=== PATIENT | female | born 1955 | race African-American/Black ===

== ENCOUNTER 2017-06-27 11:53 | Emergency (ER) | payer OTHER ==
[2017-06-27 11:59] VITALS: BP 129/90; PULSE 97; TEMP 98.5; BMI 23.3
--- NOTE | 2017-06-27 12:19 | PDOC ---
History of Present Illness - General Chief Complaint: Laceration Stated Complaint: LT FINGER LACERATION Time Seen by Provider: 06/27/17 12:03 History Source: Patient - History of Present Illness Initial Comments: 06/27/17 12:18 Best Contact: PCP:[phone] Pmhx: HTN, HDL, Pshx: 1988: Partial hysterectomy Allergies:NKDA FH:Mother/ in her 80s/hypertension, father in his 60s/hypertension Social Hx: Ciarettes/ 0 Alcohol/ 0 Drugs/0 LMP:n/a 06/27/17 12:32 62-year-old female who is right hand dominant presents to the ER complaining of a laceration to the left second digit. Patient states while pruning, she accidentally cut her left index finger. Bleeding controlled with direct pressure prior to her arrival. Patient denies extremity numbness or tingling sensation. Unknown last tetanus. Patient denies any other complaints. Past History - Past Medical History Allergies/Adverse Reactions: Allergies Allergy/AdvReac Type Severity Reaction Status Date / Time No Known Allergies Allergy Verified 06/27/17 11:59 Home Medications: Ambulatory Orders NK [No Known Home Medication] 06/27/17 - Suicide/Smoking/Psychosocial Hx Smoking History: Never smoked Hx Alcohol Use: No Drug/Substance Use Hx: No Review of Systems - Review of Systems Able to Perform ROS?: Yes Comments:: 06/27/17 12:19 CONSTITUTIONAL: Absent: fever, chills, diaphoresis, generalized weakness, malaise, loss of appetite MUSCULOSKELETAL: Absent: myalgia, arthralgia, joint swelling SKIN: Absent: rash, itching, pallor HEMATOLOGIC/IMMUNOLOGIC: Absent: easy bleeding, easy bruising, lymphadenopathy, frequent infections Left second digit 2 cm transverse laceration to the volar mid section of the middle phalanx Bleeding controlled with direct pressure prior to her arrival Negative numbness and tingling sensation/pain Is the patient limited Croatian proficient: No *Physical Exam - Vital Signs Last Vital Signs Temp Pulse Resp BP Pulse Ox 98.5 F 97 H 20 129/90 100 06/27/17 11:57 06/27/17 11:57 06/27/17 11:57 06/27/17 11:57 06/27/17 11:57 - Physical Exam Comments: 06/27/17 12:19 GENERAL: Well developed, well nourished. Awake and alert. No acute distress. MUSCULOSKELETAL Normal range of motion at all joints. No bony deformities or tenderness. No CVA tenderness. EXTREMITIES: No cyanosis. No clubbing. No edema. No calf tenderness. SKIN: Warm and dry. Normal capillary refill. No rashes. No jaundice. Left second digit 2 cm transverse laceration to the volar mid section of the middle phalanx 2 point sensation intact Full range of motion Full range of motion against resistance on flexion and extension Capillary refill less than 2 seconds PROCEDURE NOTE Left second digit 2 cm transverse/laceration to the volar mid section of the middle phalanx Betadine prep 1% lidocaine 1.5 mL/digital block Wound explored Flexor tendon visualized on full flexion and extension/negative tendon laceration appreciated Negative foreign body appreciated Normal saline irrigation/copious (4) 5-0 nylon interrupted/skin Bacitracin Band-Aid *DC/Admit/Observation/Transfer Diagnosis at time of Disposition: Finger laceration Qualifiers: Encounter type: initial encounter Finger: little finger Damage to nail status: without damage Foreign body presence: without foreign body Laterality: left Qualified Code(s): S61.217A - Laceration without foreign body of left little finger without damage to nail, initial encounter - Discharge Dispostion Condition at time of disposition: Stable Decision to Admit order: No - Referrals Referrals: Aster Castillo [Primary Care Provider] - - Patient Instructions Printed Discharge Instructions: DI for Laceration Repair Additional Instructions: Keep the incision clean and dry for 24 hours. After 24 hours, you may allow the soap and water to rinse off your incision. Avoid direct pressure of the water to the incision. Pat the incision dry with a clean clothe. Apply a small amount of bacitracin onto the incision. Cover the incision loosely with a bandaid. Take tylenol/motrin as needed for pain. Follow up with your physician or the ER in 48 hours for a wound check. Return to the ER if you notice red streaks, increase redness/swelling/severe pain to the incision. Suture removal in 11 days. - Post Discharge Activity
[2017-06-27] MEDS ORDERED: TETANUS AND DIPHTHERIA TOXOID 0.5 ML DISP.SYRIN IM ONE (12:29)
[2017-06-27] MEDS ORDERED: DIPHTH,PERTUSS(ACELL),TET 0.5 ML DISP.SYRIN IM ONE (12:43)
== END 2017-06-27 12:52 | disposition home or self-care (01) ==
LOC: JERFT 11:53
PROC: 0HQGXZZ Repair Left Hand Skin, External Approach (ICD-10-PCS; principal; 2017-06-27)
PROC: 3E0234Z Introduction of Serum, Toxoid and Vaccine into Muscle, Percutaneous Approach (ICD-10-PCS; 2017-06-27)
DX: S61.211A Laceration without foreign body of left index finger without damage to nail, initial encounter (principal); W31.89XA Contact with other specified machinery, initial encounter; Y93.H2 Activity, gardening and landscaping; Y92.9 Unspecified place or not applicable; I10 Essential (primary) hypertension; E78.5 Hyperlipidemia, unspecified
CPT/HCPCS: 90715; 99281-25

== ENCOUNTER 2017-07-08 09:27 | Emergency (ER) | payer OTHER ==
[2017-07-08 09:34] VITALS: BP 136/83; PULSE 81; TEMP 99; BMI 24.1
--- NOTE | 2017-07-08 09:45 | PDOC ---
Suture Removal/Wound Check HPI - History of Present Illness Chief Complaint: Suture/Staple Removal(Here) Stated Complaint: SUTURE REMOVAL Time Seen by Provider: 07/08/17 09:33 History Source: Yes: Patient Exam Limitations: Yes: No Limitations [facility] Date of Last ED visit: 07/28/17 - Previous ED Treatment Type of procedure performed on last visit: Yes: Laceration Repair Tetanus Immunization: Yes: Up to Date Past History - Past Medical History Allergies/Adverse Reactions: Allergies Allergy/AdvReac Type Severity Reaction Status Date / Time No Known Allergies Allergy Verified 07/08/17 09:33 Home Medications: Ambulatory Orders NK [No Known Home Medication] 06/27/17 COPD: No - Suicide/Smoking/Psychosocial Hx Smoking History: Never smoked Hx Alcohol Use: No Drug/Substance Use Hx: No Suture Removal/Wound Check PE - Physical Exam Laceration/Wound Check Symptoms: reports: None Comments: 07/08/17 09:43 left index finger with 3 simple sutures intact Current Severity Level: None Location of Laceration/Wound: left: Finger (index finger left ) *Review of Systems - Review of Systems Able to Perform ROS?: Yes Constitutional: No: Symptoms Reported HEENTM: No: Symptoms Reported Integumentary: Yes: Symptoms Reported *Physical Exam - Vital Signs Last Vital Signs Temp Pulse Resp BP Pulse Ox 99 F 81 18 136/83 99 07/08/17 09:31 07/08/17 09:31 07/08/17 09:31 07/08/17 09:31 07/08/17 09:31 - Physical Exam General Appearance: Yes: Nourished, Appropriately Dressed HEENT: positive: EOMI, LUBA Extremity: positive: Normal Capillary Refill, Normal Inspection, Normal Range of Motion, Other (left index finger with 3 simple interrupted sutures CDI well healed ) Integumentary: positive: Normal Color, Dry, Warm Neurologic: positive: Fully Oriented, Alert, Normal Mood/Affect, Normal Response , Motor Strength 5/5 Medical Decision Making - Medical Decision Making 07/08/17 09:44 cc: well healed laceration to the left index finger CDI from 3 simple sutures removed *DC/Admit/Observation/Transfer Diagnosis at time of Disposition: Visit for suture removal - Discharge Dispostion Disposition: HOME Condition at time of disposition: Good - Referrals Referrals: sAter Castillo [Primary Care Provider] - - Patient Instructions Printed Discharge Instructions: DI for Suture Removal - Post Discharge Activity
== END 2017-07-08 09:52 | disposition home or self-care (01) ==
LOC: JERFT 09:27 → JER 09:27 → JERFT 09:52
DX: Z48.02 Encounter for removal of sutures (principal)
CPT/HCPCS: 99281-25

== ENCOUNTER 2018-11-27 06:08 | Day surgery (SDC) | payer OTHER ==
[2018-11-26 16:49] VITALS: BMI 23.3
[2018-11-27] MEDS ORDERED: PROPOFOL 20 ML ONE ×3 (07:26)
[2018-11-27] MEDS ORDERED: DEXAMETHASONE SOD PHOSPHATE 4 MG/1 ML VIAL ONE (07:26)
[2018-11-27] MEDS ORDERED: MIDAZOLAM HCL 2 MG/2 ML SINGLE DOSE VIAL ONE (07:27)
[2018-11-27] MEDS ORDERED: EPHEDRINE SULFATE/0.9% NACL/PF 50 MG/10 ML SYRINGE NR ONE (07:27)
[2018-11-27] MEDS ORDERED: SUCCINYLCHOLINE CHLORIDE 200 MG/10 ML SYRINGE ONE (07:27)
[2018-11-27] MEDS ORDERED: SODIUM CHLORIDE 0.9% P/F 10 ML VIAL IJ ONE (07:28)
[2018-11-27] MEDS ORDERED: ceFAZolin SODIUM 1 GM VIAL ONE (07:28)
[2018-11-27] MEDS ORDERED: BUPIVACAINE HCL/PF 0.5% (5 MG/ML) 30 ML VIAL IJ ONE ×2 (07:43→08:42)
[2018-11-27] MEDS ORDERED: oxyCODONE HCL 5 MG TABLET PO PRN (07:48)
[2018-11-27] MEDS ORDERED: ONDANSETRON 4 MG/2 ML VIAL IVPUSH PRN (07:48)
--- NOTE | 2018-11-27 07:54 | HP ---
Satellite [facility] - Chief Complaint Chief Complaint: right knee pain - Past Medical History Allergies/Adverse Reactions: Allergies Allergy/AdvReac Type Severity Reaction Status Date / Time No Known Allergies Allergy Verified 11/27/18 06:38 - Current Medications Current Medications: Home Medications Medication Instructions Recorded Atorvastatin Ca [Lipitor] 20 mg PO HS 11/26/18 Losartan/Hydrochlorothiazide 1 each PO DAILY 11/26/18 [Hyzaar 100-25 Tablet] Hydrocodone/Acetaminophen 1 each PO Q6H #20 tablet MDD 4 11/27/18 [Hydrocodone-Acetamin 5-325 mg] Satellite Physical Exam - Physical Examination Vital Signs: Vital Signs Period Temp Pulse Resp BP Sys/[place] Pulse Ox Last 24 Hr 98.2 F-98.2 F 86-86 20-20 126-126/78-78 99 General Appearance: Well Nourished, Well Developed, Alert & Oriented x3 ENT: Clear Lung: Normal air movement Heart: Regular rate & rhythm Extremities: Other (right knee- + swelling, + ttp, decr rom, + mcmurrays, nvi) Neurological: Intact, Alert, Oriented Satellite Impression/Plan - Impression/Plan Impression: right knee internal derangement Operative Procedure: right knee arthroscopy Date to be Performed: 11/27/18
[2018-11-27] MEDS ORDERED: LACTATED RINGERS SOLUTION 1,000 ML IV SCH (08:00)
[2018-11-27] MEDS ORDERED: ceFAZolin SODIUM 1 GM VIAL IVPB ONE (08:20)
--- NOTE | 2018-11-27 09:00 | OP ---
Operative Note - Note: Operative Date: 11/27/18 Pre-Operative Diagnosis: right knee pain, MM tear, OA Operation: right knee arthroscopy, partial medial meniscectomy, debridement chondroplasty Post-Operative Diagnosis: Same as Pre-op Surgeon: Chris Hayden [place] Hand: Jorgito Dubois Anesthesiologist/MINE ENGINEERING SUPERVISOR: Any Pina Anesthesia: General, Local Specimens Removed: shavings Estimated Blood Loss (mls): 0 Drains, Volume Out (mls): 0 Blood Volume Replaced (mls): 0 Fluid Volume Replaced (mls): 700 Operative Report Dictated: Yes
--- NOTE | 2018-11-27 10:04 | OP ---
DATE OF OPERATION: 11/27/2018 PREOPERATIVE DIAGNOSIS: Right knee pain, medial meniscus tear, and osteoarthritis. POSTOPERATIVE DIAGNOSIS: Right knee pain, medial meniscus tear, and osteoarthritis. OPERATION: Right knee arthroscopy, partial medial meniscectomy, and debridement chondroplasty. SURGEON: Chris Hayden M.D. BATCH MIXING TRUCK DRIVER: Jorgito Dubois M.D. ANESTHESIOLOGIST: Any Pina MD DRAINS: None. COMPLICATIONS: None. SPECIMENS: Arthroscopic shavings. BLOOD LOSS: None. BLOOD GIVEN: None. FLUID REPLACEMENT: 500 mL PlasmaLyte. INDICATIONS FOR PROCEDURE: Patient is a 63-year-old female with a preoperative diagnosis of right knee pain, medial meniscus tear and osteoarthritis. After understanding the potential risks, complications, alternatives and benefits of surgery versus nonsurgical treatment, the patient elected to undergo this procedure. She understands she may not get complete relief of her symptoms, and she may need continued treatment of her osteoarthritis. PROCEDURE: The patient was brought to the operating room, peripheral IV placed and IV sedation given. One gram of IV Ancef was given. LMA anesthesia was induced. Ample Webril was placed around the right thigh. A tourniquet was applied. The patient was placed into the C-clamp leg stevens with a Styrofoam ring and ample padding throughout. The right lower extremity was prepped and draped in sterile fashion, elevated, exsanguinated with an Esmarch bandage and tourniquet inflated to 250 mmHg. A superomedial outflow portal was established. A lateral portal was established, and diagnostic arthroscopy was performed. Immediately it was apparent the patient had a large radial tear of the posterior horn of the medial meniscus and degenerative fraying of the body of the medial meniscus. A medial portal was established under direct visualization using a spinal needle. Using a combination of the right biting forceps and the curved shaver, a partial medial meniscectomy was performed. Photographs were taken before and after. I then used the probe, and the flaps that were left were stable, but there was 1 portion of the radial component that went all the way to the periphery, therefore disrupting all the hoop fibers of the medial meniscus. There was an area of grade 4 osteoarthritis on the medial tibial plateau, approximately the size of a quarter. Gentle debridement chondroplasty was performed along its periphery. The medial femoral condyle had some mild arthritic changes but was not as bad. The intracondylar notch looked good. The ACL looked good. The lateral compartment looked good. There was mild fraying of the lateral meniscus as well. This was debrided. The lateral compartment had no significant osteoarthritis. Next, the patellofemoral compartment was directly visualized. 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 This area was debrided. After the debridement chondroplasty, the area was copiously irrigated and washed out. All debris and excess saline were removed. The arthroscopy equipment was removed. The knee was injected with 20 mL of 0.5% Marcaine, after the portals were closed with 3-0 nylon sutures. The area was then washed and dried, and covered with Xeroform gauze, 4 x 4 gauze, Webril and IRIS bandage. Total tourniquet time was 18 minutes. There were no complications during the case. The patient tolerated the procedure quite well and was brought to the ambulatory recovery room in stable condition. Faye [id number]
[2018-11-27] MEDS ORDERED: ONDANSETRON 4 MG/2 ML VIAL IVPB ONE (10:30)
[2018-11-27] MEDS ORDERED: ONDANSETRON 4 MG/2 ML VIAL ONE (10:31)
[2018-11-27 10:53] VITALS: TEMP 97.4
[2018-11-27 15:17] VITALS: BP 130/77; PULSE 64
== END 2018-11-27 13:30 | disposition home or self-care (01) ==
LOC: JASU-SURG 06:08
PROVIDERS: ATTEND Orthopaedic Surgery
PROC: 0SBC4ZZ Excision of Right Knee Joint, Percutaneous Endoscopic Approach (ICD-10-PCS; principal; 2018-11-27 08:00)
DX: S83.241A Other tear of medial meniscus, current injury, right knee, initial encounter (principal); M17.11 Unilateral primary osteoarthritis, right knee; X58.XXXA Exposure to other specified factors, initial encounter; Y93.9 Activity, unspecified; Y92.9 Unspecified place or not applicable; Y99.9 Unspecified external cause status; I10 Essential (primary) hypertension
CPT/HCPCS: 94760

== ENCOUNTER 2023-03-12 19:57 | Inpatient (IN) | payer OTHER ==
[2023-03-12 21:15] LABS: BASO % 0.6 % (0-2.0); HEMATOCRIT 22.2 % (32.4-45.2); HEMOGLOBIN 7.2 GM/dL (10.7-15.3); LYMPH % 14.4 % (8-40); MCH 21.7 pg (25.7-33.7); MCHC 32.3 g/dl (32.0-36.0); MEAN CELL VOLUME 67.1 fl (80-96); MEAN PLT VOLUME 7.3 fl (7.5-11.1); MONO % 6.3 % (3.8-10.2); NEUT % 78.7 % (42.8-82.8); PLATELET COUNT 433 10^3/uL (134-434); RBC 3.31 M/mm3 (3.60-5.2); RDW 19.4 % (11.6-15.6); WHITE BLOOD COUNT 8.7 K/mm3 (4.0-10.0)
[2023-03-12 21:21] LABS: VENOUS BASE EXCESS -4.7 mmol/L (-2-2); VENOUS O2 SATURATION 44.2 % (70-80); VENOUS PCO2 36.3 mmHg (38-52); VENOUS PH 7.364 (7.310-7.410)
[2023-03-12 21:27] LABS: INR 1.26 (0.83-1.09); PROTHROMBIN TIME (PATIENT) 14.6 SEC (9.7-13.0)
[2023-03-12 21:41] LABS: POTASSIUM 4.3 mmol/L (3.5-5.1)
[2023-03-12 21:44] LABS: ALBUMIN 2.7 g/dl (3.4-5.0); BLOOD UREA NITROGEN 47.6 mg/dL (7-18)
[2023-03-12 21:48] LABS: CREATININE 3.7 mg/dL (0.55-1.3)
[2023-03-12 21:49] LABS: BILIRUBIN,TOTAL 0.5 mg/dL (0.2-1); TOT PROT 7.9 g/dl (6.4-8.2)
[2023-03-12] MEDS ORDERED: ASPIRIN 81 MG CHEWABLE TABLETS ONE (21:50)
[2023-03-12 21:59] LABS: ANISOCYTOSIS 2+; MACROCYTOSIS 0; OVALOCYTE 1+; TARGET CELLS 1+
[2023-03-12] MEDS: ASPIRIN 81 MG CHEWABLE TABLETS PO ONE (22:04)
[2023-03-12 23:50] LABS: LACTIC ACID 2.4 mmol/L (0.4-2.0)
[2023-03-13] MEDS ORDERED: FUROSEMIDE 40 MG/4 ML INJECTABLE VIAL ONE (00:27)
[2023-03-13] MEDS: FUROSEMIDE 40 MG/4 ML INJECTABLE VIAL IVPUSH ONE (00:30)
[2023-03-13] MEDS ORDERED: LIDOCAINE 4% PATCH TP ONE (01:53)
[2023-03-13] MEDS ORDERED: ACETAMINOPHEN INJECTION 100 ML IVPB ONE (01:53)
[2023-03-13] MEDS: LIDOCAINE 5% TOPICAL PATCH TP ONE (02:02)
[2023-03-13] MEDS: ACETAMINOPHEN 1000 MG/100 ML BAG IVPB ONE (02:02)
[2023-03-13] MEDS ORDERED: ALPRAZolam 0.25 MG TABLET ONE (03:33)
[2023-03-13] MEDS: LOSARTAN 50MG/HCTZ 12.5MG 1 TAB PO STA (03:54)
[2023-03-13] MEDS: ALPRAZolam 1 MG TABLET PO STA (03:54)
[2023-03-13] MEDS ORDERED: FUROSEMIDE 40 MG/4 ML INJECTABLE VIAL IVPUSH SCH (06:00)
[2023-03-13] MEDS ORDERED: HEPARIN NA (PORCINE) 5,000 UNITS/ML 1ML VIAL ONE (06:52)
[2023-03-13] MEDS: HEPARIN NA (PORCINE) 5,000 UNITS/ML 1ML VIAL SQ SCH (07:00)
[2023-03-13 07:24] LABS: BASO % 0.2 % (0-2.0); HEMATOCRIT 20.7 % (32.4-45.2); LYMPH % 16.7 % (8-40); MCH 21.9 pg (25.7-33.7); MCHC 32.6 g/dl (32.0-36.0); MEAN CELL VOLUME 67.2 fl (80-96); MEAN PLT VOLUME 7.6 fl (7.5-11.1); MONO % 6.8 % (3.8-10.2); NEUT % 76.3 % (42.8-82.8); PLATELET COUNT 381 10^3/uL (134-434); RBC 3.09 M/mm3 (3.60-5.2); RDW 19.5 % (11.6-15.6); RETICULOCYTES 0.63 % (0.5-1.5); WHITE BLOOD COUNT 7.5 K/mm3 (4.0-10.0)
[2023-03-13 07:40] LABS: POTASSIUM 4.7 mmol/L (3.5-5.1)
[2023-03-13 08:03] LABS: CALCIUM 8.8 mg/dL (8.5-10.1)
[2023-03-13 08:04] LABS: ALBUMIN 2.5 g/dl (3.4-5.0); BLOOD UREA NITROGEN 48.6 mg/dL (7-18); MAGNESIUM 2.1 mg/dL (1.8-2.4)
[2023-03-13 08:06] LABS: BILIRUBIN,TOTAL 0.5 mg/dL (0.2-1); CREATININE 3.9 mg/dL (0.55-1.3); PHOSPHOROUS 5.5 mg/dL (2.5-4.9)
[2023-03-13 08:08] LABS: TOT PROT 7.4 g/dl (6.4-8.2)
[2023-03-13 08:10] LABS: HEMOGLOBIN 6.8 GM/dL (10.7-15.3)
[2023-03-13] MEDS ORDERED: ASPIRIN COATED 81 MG TABLET.EC ONE (09:46)
[2023-03-13] MEDS: ASPIRIN COATED 81 MG TABLET.EC PO SCH (09:54)
[2023-03-13] MEDS ORDERED: CLOPIDOGREL BISULFATE 75 MG TABLET (FP) PO SCH (10:00)
[2023-03-13] MEDS ORDERED: LABETALOL HCL 200 MG TABLET (FP) ONE ×2 (11:50→22:45)
[2023-03-13] MEDS ORDERED: PANTOPRAZOLE SODIUM 40 MG VIAL ONE ×2 (11:50→22:46)
[2023-03-13] MEDS: LABETALOL HCL 200 MG TABLET (FP) PO SCH (12:34)
[2023-03-13] MEDS: PANTOPRAZOLE SODIUM 40 MG VIAL IVPUSH SCH (12:35)
[2023-03-13] MEDS: LIDOCAINE PATCH REMOVAL MC ONE (14:11)
[2023-03-13] MEDS ORDERED: ATORVASTATIN CA 80 MG TABLET (FP) ONE (22:45)
[2023-03-13] MEDS: ATORVASTATIN CA 80 MG TABLET (FP) PO SCH (22:53)
[2023-03-14 02:50] VITALS: BMI 25.4
[2023-03-14 07:25] LABS: BASO % 0.3 % (0-2.0); HEMATOCRIT 22.9 % (32.4-45.2); HEMOGLOBIN 7.5 GM/dL (10.7-15.3); LYMPH % 17.2 % (8-40); MCH 22.5 pg (25.7-33.7); MCHC 32.6 g/dl (32.0-36.0); MEAN PLT VOLUME 7.8 fl (7.5-11.1); MONO % 8.5 % (3.8-10.2); PLATELET COUNT 336 10^3/uL (134-434); RBC 3.32 M/mm3 (3.60-5.2); RDW 20.1 % (11.6-15.6)
[2023-03-14 07:30] LABS: POTASSIUM 4.7 mmol/L (3.5-5.1)
[2023-03-14 07:36] LABS: CALCIUM 8.2 mg/dL (8.5-10.1)
[2023-03-14 07:37] LABS: BLOOD UREA NITROGEN 59.4 mg/dL (7-18)
[2023-03-14 07:40] LABS: CREATININE 4.7 mg/dL (0.55-1.3)
[2023-03-14] MEDS ORDERED: MIDAZOLAM HCL 2 MG/2 ML SINGLE DOSE VIAL ONE (13:24)
[2023-03-14] MEDS: FENTANYL CITRATE/PF 50 MCG/ML VIAL IVPUSH ONE ×3 (13:54→14:35)
[2023-03-14] MEDS: MIDAZOLAM HCL 2 MG/2 ML SINGLE DOSE VIAL IVPUSH ONE ×2 (13:54→14:10)
[2023-03-14] MEDS ORDERED: FENTANYL CITRATE/PF 50 MCG/ML VIAL ONE (14:35)
[2023-03-14] MEDS: ACETAMINOPHEN 1000 MG/100 ML BAG IVPB ONE (17:41)
[2023-03-14] MEDS: FLU VACCINE (FLULAVAL) PF 60 MCG/0.5 ML SYRINGE 2023-2024 IM ONE (18:16)
[2023-03-14] MEDS ORDERED: ATORVASTATIN CA 40 MG TABLET (FP) ONE (20:13)
[2023-03-14] MEDS: SODIUM CHLORIDE 0.9% 500 ML INFUS.BAG IV ONE (23:00)
[2023-03-15] MEDS: ACETAMINOPHEN 1000 MG/100 ML BAG IVPB ONE (00:38)
[2023-03-15 07:31] LABS: BASO % 0.3 % (0-2.0); EOS % 0.5 % (0-4.5); HEMATOCRIT 22.9 % (32.4-45.2); HEMOGLOBIN 7.7 GM/dL (10.7-15.3); MCH 22.7 pg (25.7-33.7); MCHC 33.8 g/dl (32.0-36.0); MEAN CELL VOLUME 67.3 fl (80-96); MEAN PLT VOLUME 7.6 fl (7.5-11.1); MONO % 11.3 % (3.8-10.2); NEUT % 75.9 % (42.8-82.8); PLATELET COUNT 333 10^3/uL (134-434); RBC 3.41 M/mm3 (3.60-5.2); RDW 19.8 % (11.6-15.6)
[2023-03-15 07:48] LABS: POTASSIUM 4.5 mmol/L (3.5-5.1)
[2023-03-15 07:53] LABS: CALCIUM 7.6 mg/dL (8.5-10.1)
[2023-03-15 07:54] LABS: ALBUMIN 2.1 g/dl (3.4-5.0); BLOOD UREA NITROGEN 66.2 mg/dL (7-18)
[2023-03-15 07:57] LABS: CREATININE 5.1 mg/dL (0.55-1.3)
[2023-03-15 07:58] LABS: BILIRUBIN,TOTAL 0.4 mg/dL (0.2-1)
[2023-03-15 07:59] LABS: TOT PROT 6.4 g/dl (6.4-8.2)
[2023-03-15] MEDS: ACETAMINOPHEN 1000 MG/100 ML BAG IVPB PRN (12:02)
[2023-03-15] MEDS: PANTOPRAZOLE 40 MG TABLET PO SCH (21:19)
[2023-03-15] MEDS: MELATONIN 1 MG TABLET PO SCH (21:41)
[2023-03-15] MEDS: POLYETHYLENE GLYCOL (HEALTHYLAX) 3350 17 GM PACKET PO ONE (23:41)
[2023-03-16 07:24] LABS: BASO % 0.2 % (0-2.0); EOS % 1.1 % (0-4.5); HEMATOCRIT 22.1 % (32.4-45.2); HEMOGLOBIN 7.1 GM/dL (10.7-15.3); LYMPH % 11.4 % (8-40); MCH 22.1 pg (25.7-33.7); MEAN CELL VOLUME 68.9 fl (80-96); MEAN PLT VOLUME 7.6 fl (7.5-11.1); MONO % 12.4 % (3.8-10.2); NEUT % 74.9 % (42.8-82.8); PLATELET COUNT 293 10^3/uL (134-434); RDW 20.5 % (11.6-15.6); WHITE BLOOD COUNT 8.5 K/mm3 (4.0-10.0)
[2023-03-16 07:32] LABS: CHLORIDE 107 mmol/L (98-107); POTASSIUM 4.3 mmol/L (3.5-5.1); SODIUM 136 mmol/L (136-145)
[2023-03-16 07:36] LABS: ALBUMIN 2.2 g/dl (3.4-5.0); ANION GAP 9 mmol/L (4-13); BLOOD UREA NITROGEN 57.5 mg/dL (7-18); CO2 21 mmol/L (21-32); GLUCOSE,RANDOM 98 mg/dL (74-106)
[2023-03-16 07:39] LABS: CREATININE 4.4 mg/dL (0.55-1.3); SGOT/AST 27 U/L (15-37); SGPT/ALT 27 U/L (13-61)
[2023-03-16 07:40] LABS: BILIRUBIN,TOTAL 0.5 mg/dL (0.2-1); TOT PROT 6.3 g/dl (6.4-8.2)
[2023-03-16 07:42] LABS: ALK PHOS 83 U/L (45-117)
[2023-03-16 08:40] LABS: ANISOCYTOSIS 2+; MACROCYTOSIS 0
[2023-03-16] MEDS: ACETAMINOPHEN 1000 MG/100 ML BAG IVPB ONE (23:45)
[2023-03-17 09:47] VITALS: RESP 18
[2023-03-17 15:08] LABS: N-TERMINAL BNP > 35000.0 pg/ml (5-125)
[2023-03-18 07:01] LABS: BASO % 0.3 % (0-2.0); EOS % 1.2 % (0-4.5); LYMPH % 15.7 % (8-40); MCH 22.2 pg (25.7-33.7); MEAN CELL VOLUME 69.6 fl (80-96); MEAN PLT VOLUME 7.5 fl (7.5-11.1); MONO % 12.6 % (3.8-10.2); NEUT % 70.2 % (42.8-82.8); PLATELET COUNT 309 10^3/uL (134-434); RBC 3.01 M/mm3 (3.60-5.2)
[2023-03-18 07:11] LABS: HEMOGLOBIN 6.7 GM/dL (10.7-15.3)
[2023-03-18 07:17] LABS: POTASSIUM 4.1 mmol/L (3.5-5.1)
[2023-03-18 07:21] LABS: CALCIUM 8.1 mg/dL (8.5-10.1)
[2023-03-18 07:22] LABS: BLOOD UREA NITROGEN 33.9 mg/dL (7-18); MAGNESIUM 1.6 mg/dL (1.8-2.4)
[2023-03-18 07:25] LABS: CREATININE 2.5 mg/dL (0.55-1.3); PHOSPHOROUS 3.5 mg/dL (2.5-4.9)
[2023-03-18 07:26] LABS: BILIRUBIN,TOTAL 0.5 mg/dL (0.2-1)
[2023-03-18 07:27] LABS: TOT PROT 6.5 g/dl (6.4-8.2)
[2023-03-18] MEDS: ACETAMINOPHEN 325 MG TABLET (FP) PO PRN (10:26)
[2023-03-18] MEDS: MAGNESIUM OXIDE 400 MG TABLET (FP) PO ONE (10:29)
[2023-03-19 07:07] LABS: BASO % 0.6 % (0-2.0); EOS % 1.1 % (0-4.5); HEMATOCRIT 26.8 % (32.4-45.2); HEMOGLOBIN 8.5 GM/dL (10.7-15.3); MCH 22.5 pg (25.7-33.7); MCHC 31.9 g/dl (32.0-36.0); MEAN CELL VOLUME 70.7 fl (80-96); MEAN PLT VOLUME 7.7 fl (7.5-11.1); MONO % 10.4 % (3.8-10.2); NEUT % 71.9 % (42.8-82.8); PLATELET COUNT 334 10^3/uL (134-434); RBC 3.79 M/mm3 (3.60-5.2); RDW 20.8 % (11.6-15.6); WHITE BLOOD COUNT 9.2 K/mm3 (4.0-10.0)
[2023-03-19 07:30] LABS: POTASSIUM 3.9 mmol/L (3.5-5.1)
[2023-03-19 07:36] LABS: ALBUMIN 2.2 g/dl (3.4-5.0); BLOOD UREA NITROGEN 26.2 mg/dL (7-18); MAGNESIUM 1.4 mg/dL (1.8-2.4)
[2023-03-19 07:39] LABS: CREATININE 2.1 mg/dL (0.55-1.3)
[2023-03-19 07:41] LABS: BILIRUBIN,TOTAL 0.6 mg/dL (0.2-1); TOT PROT 6.5 g/dl (6.4-8.2)
[2023-03-19] MEDS: MAGNESIUM 2GM/50ML STERILE WATER IVPB IVPB ONE ×2 (13:54→16:32)
[2023-03-19] MEDS: MAGNESIUM SULF 50% (8.12 MEQ/2 ML-1 GM VIAL) IVPB ONE ×2 (16:26→21:21)
[2023-03-19] MEDS: MAGNESIUM OXIDE 400 MG TABLET (FP) PO ONE (16:26)
[2023-03-20 06:51] LABS: HEMATOCRIT 29.5 % (32.4-45.2); HEMOGLOBIN 9.3 GM/dL (10.7-15.3); MCH 22.3 pg (25.7-33.7); MCHC 31.6 g/dl (32.0-36.0); MEAN CELL VOLUME 70.4 fl (80-96); MEAN PLT VOLUME 7.5 fl (7.5-11.1); PLATELET COUNT 385 10^3/uL (134-434); RBC 4.19 M/mm3 (3.60-5.2); WHITE BLOOD COUNT 8.5 K/mm3 (4.0-10.0)
[2023-03-20 07:22] LABS: BLOOD UREA NITROGEN 23.1 mg/dL (7-18); CALCIUM 8.2 mg/dL (8.5-10.1)
[2023-03-20 07:23] LABS: ALBUMIN 2.1 g/dl (3.4-5.0); MAGNESIUM 2.8 mg/dL (1.8-2.4)
[2023-03-20 07:25] LABS: CREATININE 1.8 mg/dL (0.55-1.3)
[2023-03-20 07:26] LABS: BILIRUBIN,TOTAL 0.6 mg/dL (0.2-1); PHOSPHOROUS 3.1 mg/dL (2.5-4.9); TOT PROT 6.3 g/dl (6.4-8.2)
[2023-03-20] MEDS: CARVEDILOL 12.5 MG TABLET (FP) PO SCH (09:48)
[2023-03-20 10:20] VITALS: BP 141/77; PULSE 62
[2023-03-20 12:53] VITALS: TEMP 98.2
== END 2023-03-20 13:04 | disposition short-term general hospital (02) | DRG 755 ==
LOC: JER 19:57 → JERBED 03-13 00:32 → J4W 03-14 02:41
PROVIDERS: ADMIT Internal Medicine; ATTEND Internal Medicine
PROC: 30233N1 Transfusion of Nonautologous Red Blood Cells into Peripheral Vein, Percutaneous Approach (ICD-10-PCS; 2023-03-13)
PROC: 0T9330Z Drainage of Right Kidney Pelvis with Drainage Device, Percutaneous Approach (ICD-10-PCS; principal; 2023-03-14)
PROC: 0T9430Z Drainage of Left Kidney Pelvis with Drainage Device, Percutaneous Approach (ICD-10-PCS; 2023-03-14)
DX: C56.9 Malignant neoplasm of unspecified ovary (principal); E87.20 Acidosis, unspecified; I24.89 Other forms of acute ischemic heart disease; I13.0 Hypertensive heart and chronic kidney disease with heart failure and stage 1 through stage 4 chronic kidney disease, or unspecified chronic kidney disease; J98.11 Atelectasis; N17.9 Acute kidney failure, unspecified; N13.30 Unspecified hydronephrosis; N13.8 Other obstructive and reflux uropathy; N18.9 Chronic kidney disease, unspecified; I50.9 Heart failure, unspecified; R53.83 Other fatigue; E78.5 Hyperlipidemia, unspecified; E83.42 Hypomagnesemia; R91.1 Solitary pulmonary nodule; D63.0 Anemia in neoplastic disease; R62.7 Adult failure to thrive; Z68.25 Body mass index [BMI] 25.0-25.9, adult
CPT/HCPCS: 0241U-QW; 36415; 36430; 50432; 71045-TC-FY; 71250-TC; 74176-TC; 80048; 80053; 82272; 82378; 82728; 82803; 82962; 83540; 83550; 83605; 83735; 83880; 84100; 84484; 85025; 85027; 85045; 85610; 86301; 86304; 86850; 86900; 86901; 86922; 87070; 87075; 87102; 87116; 87205; 87206; 87210; 87635; 90686; 93005; 93010; 93306-TC; 93970-TC; 97116-GP; 97161-GP; 99285-25; G0008; J0131; J1644; P9058